=== PATIENT | female | born 1985 | race Caucasian/White ===

== ENCOUNTER → 2017-01-01 00:22 | Observation (INO) ==
--- NOTE | 2017-01-01 00:22 | OB/GYN Progress Note ---
Date of Encounter: 01/01/17 Time of Encounter: 00:20 (Triaged by RN. Pt. left AMA for [place]) - Assessment and Plan (1) Term Current Visit: Yes Status: Acute (2) with care elsewhere in third trimester Current Visit: Yes Status: Acute
[2017-01-01 00:33] LABS: Amphetamine Screen,Urine Negative ng/mL (Cutoff=1000); Barbiturate Screen,Urine Negative ng/mL (Cutoff=200); Benzodiazepines Screen,Urine Negative ng/mL (Cutoff=200); Cannabinoid Screen,Urine Negative ng/mL (Cutoff = 50); Cocaine Screen,Urine Negative ng/mL (Cutoff= 300); Opiate Screen,Urine Negative ng/mL (Cutoff=300); Phencyclidine Screen,Urine Negative ng/mL (Cutoff=25)
== END | disposition left against medical advice (07) ==
LOC: 1NENULAB